=== PATIENT | female | born 1980 | race Caucasian/White ===

== ENCOUNTER 2023-09-13 13:24 | Outpatient (REF) | payer OTHER, SELFPAY ==
--- NOTE | ~2023-09-13 | FL_ITS ---
Left hip arthrogram Indications: Left hip pain. Intra-articular gadolinium injection is needed prior to MRI. Procedure: Risks and benefits and possible complications were discussed with the patient and the consent form was signed. The patient was placed hip on the fluoroscopy table. The left hip was prepped and draped in normal sterile fashion. 1% buffered lidocaine was used for anesthesia. A 22-gauge spinal needle was used to access the hip joint. Intra-articular position of the needle within the hip joint was verified using 3 cc of Omnipaque 300. A total of 10 mL of gadolinium/saline (1:200) contrast mixture was then injected into the hip joint. The needle was then removed and a Band-Aid was applied to the injection site. The patient tolerated the procedure well and was sent for to MRI. There were no immediate complications. FL/FL arthrogram hip LT Impression: Fluoroscopic left hip arthrogram The procedure was performed by Oscar Stacy PA-C, and directly supervised by Dr. Cavazos.
--- NOTE | ~2023-09-13 | MR_ITS ---
EXAMINATION: MR HIP WITH CONTRAST, LEFT CLINICAL INFORMATION: Pain. Patient reports pain, clicking, popping, arthritis. COMPARISON: None available. TECHNIQUE: MRI of the left hip was performed after the intra-articular administration of a dilute gadolinium-containing solution on a high-field scanner. FINDINGS: BONE/JOINTS: Anatomic alignment of the hip joint. Minimal lateral joint space loss, mild cartilage heterogeneity suggestive of mild degenerative changes. No acute fracture, avascular necrosis or stress injury. No aggressive marrow replacing lesion is seen. Alpha angle measures 39 degrees. (Measured at the anterior 3 o'clock position on the oblique sagittal sequence). Acetabular depth is within normal limits. LABRUM: No definite labral tear is identified. MUSCLES/TENDONS: Minimal T2 signal associated with the distal gluteus medius tendon, with minimal edema in the subjacent soft tissues, could reflect mild tendinosis. Gluteus minimus, common hamstring, and iliopsoas tendons are intact. No muscle tear is identified. No significant greater trochanteric or iliopsoas bursitis. MISCELLANEOUS: Subcentimeter left groin lymph nodes. There are low signal foci in the uterus, probable fibroids. MR/MR hip LT w con IMPRESSION: 1. Minimal right hip joint degenerative changes. No evidence of acute fracture, avascular necrosis or stress injury. 2. No definite labral tear is identified. 3. Question minimal gluteus medius tendinosis. 4. Additional findings and details as above.
[2023-09-13] MEDS: gadobutroL 2 ML VIAL IVPUSH (15:10)
== END 2023-09-13 13:25 | disposition home or self-care (01) ==
LOC: HO.XRAY 13:24
PROVIDERS: PCP Family Medicine Sports Medicine; Visit Provider Family Medicine Sports Medicine
DX: M25.552 Pain in left hip (principal)
CPT/HCPCS: 27093; 73525; 73722; A9585

== ENCOUNTER → 2023-09-13 13:38 | Outpatient (BNV) | payer OTHER, SELFPAY | PROVIDERS: PCP Family Medicine Sports Medicine; Visit Provider Student in an Organized Health Care Education/Training Program | DX: M25.552 Pain in left hip (principal) | CPT/HCPCS: 27093; 73525 ==